=== PATIENT | female | born 2000 | race Caucasian/White ===

== ENCOUNTER → 2021-01-02 08:28 | Outpatient (CLI) | payer BC, SELFPAY ==
--- NOTE | 2021-01-02 08:32 | MR_ITS ---
PROCEDURE: MR KNEE LT WO CON CLINICAL INDICATION: LEFT KNEE PAIN COMPARISON: No exams were available for comparison TECHNIQUE: Routine multiplanar multi echo sequences are performed without gadolinium enhancement. FINDINGS: The medial and lateral menisci are intact. The ACL and PCL are intact. The MCL and lateral collateral ligament complex are intact. Small joint effusion is noted. The extensor mechanism is unremarkable. The popliteal tendon and the posterolateral corner structures are unremarkable. There is a small Moreira cyst noted. The articular cartilage in the lateral, patellofemoral and medial compartments are unremarkable without evidence of focal cortical edge loss. Bone marrow signal intensity is within normal limits with out evidence of marrow edema or infiltrative process. Small Moreira cyst is noted. The soft tissues are unremarkable. IMPRESSION: Small joint effusion. No evidence of meniscal or ligamentous injuries. Dictated by: Jeni Amaro 01/02/2021 10:52 Jeni Amaro in [facility] 01/02/2021 10:52
== END ==
PROVIDERS: PCP Family Medicine; Visit Provider Family Medicine
DX: M25.562 Pain in left knee (principal); S83.242A Other tear of medial meniscus, current injury, left knee, initial encounter
CPT/HCPCS: 73721